=== PATIENT | female | born 1955 | race Caucasian/White ===

== ENCOUNTER → 2022-03-06 | Day surgery (SDC) | payer MEDICARE, OTHER ==
[~2022-03-06] MED LIST: AMITIZA 24 MCG24 MCG PO; CLARITIN10 M2 PO; CLINDAMYCIN HC300 MG PO; COL-RITE100 MG PO; COLACE 100MG C100 MG PO; DAILY VITAMIN1 EAC2 PO; DULCOLAX10 MG PR; GENTLE LAXATIVE10 MG PR; IBU600 MG PO; LACTULOSE10 GM/151 PO; LUBRICATING EYE15 ML OP; NORCO 5-325 TA1 EACH PO; ONDANSETRON HCL4 MG PO; OYSTER SHELL C1 EAC1 PO; OYSTER SHELL C1 EACH PO; PAIN RELIEF EX500 MG PO; REFRESH DIGITAL10 ML OP; ROXICODONE5 MG PO; SENNA LAXATIVE8.6 MG PO; VITAMIN; [UNRECOGNIZED DRUG - OTHER]
== END | disposition home or self-care (01) ==
LOC: OR 07:30
DX: K02.9 Dental caries, unspecified (principal); K05.6 Periodontal disease, unspecified; K08.50 Unsatisfactory restoration of tooth, unspecified; R47.01 Aphasia; G82.50 Quadriplegia, unspecified; E03.9 Hypothyroidism, unspecified; Z88.0 Allergy status to penicillin; Z79.899 Other long term (current) drug therapy; Z20.822 Contact with and (suspected) exposure to COVID-19
CPT/HCPCS: J1100; J2001; J2370; J2405; J2704; J3010; J7030; J7120; U0002